=== PATIENT | female | born 1980 | race Caucasian/White ===

== ENCOUNTER 2016-08-04 12:08 | Emergency (ER) | payer OTHER ==
--- NOTE | ~2016-08-04 | CT2 ---
[facility] A Service of [facility] RADIOLOGY TEXT RESULTS PATIENT: STARLA SHARP LOCATION: SED : 82 UNIT #: [id number] AGE: [address]: Eric Aguilar MD SEX: F ORDER DR: [id number] [place] [id number] E MR#: [id number] Acc #: [id number] NAME: STARLA SHARP : 1980 SEX: F STUDY DATE/TIME: 08/04/2016 14:01 UNIT: SED ROOM: STUDY DESCRIPTION: CT Abd and Pelv W Cont Attending Physician: Eric Aguilar M.D. Ordering Physician: Eric Aguilar M.D. Primary Care Physician: Maria Luisa Garcia Aprn MEDICAL IMAGING REPORT This report is preliminary unless electronic signature is present. EXAM CT of the abdomen and pelvis with IV contrast media. HISTORY Left flank pain, unable to urinate, hematuria for 3 days. TECHNIQUE Transaxial imaging of the abdomen and pelvis was performed with IV contrast media. This CT exam was performed with one or more of the following radiation dose reduction techniques: automatic exposure control, adjustment of mA and/or kV according to patient size, and iterative reconstruction. FINDINGS Lung bases are clear. Scans through the liver show no focal abnormalities. The gallbladder is absent. Spleen is of normal size. Adrenal glands and pancreas are normal. There is mild bilateral hydronephrosis and hydroureter. There is enhancement along the course of the ureter on both the right and left. The bladder wall is thickened and very irregular. There appears to be some edema around the distal ureters. Uterus is unremarkable. There are cysts in both adnexa. No free fluid collections are identified. Kidneys themselves show no perinephric edema. No stones are present. No dilated or thickened loops of bowel are present. CONCLUSION 1. Thickened bladder wall that appears irregular with enhancement of the ureters and some periureteral edema distally near the ureterovesical junction suggesting severe cystitis and likely ureteritis. There is mild hydronephrosis present. 2. Status post cholecystectomy. [facility] A Service of [facility] RADIOLOGY TEXT RESULTS PATIENT: STARLA SHARP LOCATION: SED : [birth year] UNIT #: [id number] AGE: [address]: Eric Aguilar MD SEX: F ORDER DR: Dictated by... Jose Manuel Napoles M.D. THIS IS AN ELECTRONICALLY VERIFIED REPORT Jose Manuel Napoles M.D. at 08/07/2016 2:20 PM ETIENNE/kameron TD: 08/04/2016 17:10 JOB #: [id number] MEDICAL IMAGING REPORT Page 1 of 1
[2016-08-04 11:51] LABS: URINE SOURCE CLEAN CATCH
[2016-08-04 11:59] LABS: URINE APPEARANCE SL CLOUDY; URINE BILIRUBIN NEG (NEG); URINE BLOOD 3+ (NEG); URINE COLOR YELLOW; URINE GLUCOSE 300 MG/DL (NORM); URINE KETONE 1+ (NEG); URINE LEUKOCYTE ESTERASE 1+ (NEG); URINE NITRATE POS (NEG); URINE PROTEIN 2+ (NEG); URINE UROBILINOGEN 0.2 MG/DL (NORM)
[2016-08-04 12:00] LABS: MICRO INDICATED? YES
[2016-08-04 12:05] LABS: CULTURE INDICATED? YES; URINE BACTERIA 1+ (NEG); URINE RBC 25-50 /[HPF] (0-2); URINE WBC INNUM /[HPF] (0-5)
[~2016-08-04 12:08] MED LIST: ABILIFY PO; AMOXICILLIN PO; ANTIVERT PO; ASPIRIN PO; ASPIRIN81 M2; BACTRIM DS TABL1 TA1 PO; DIAZEPAM PO; FISH OIL 1,0001 CAP PO; FISH OIL 1,001000 M1 PO; FLEXERIL10 MG PO; GLUCOTROL PO; GLUCOTROL10 MG PO; HUMALOG100 U/ML SUBQ; HUMALOG100 UNIT/1; HUMULIN N100 UNIT/2 SUBQ; IBUPROFEN800 MG PO; JANUVIA PO; KEFLEX500 MG PO; LANTUS100 UNITS/ SUBQ; LEVEMIR SUBQ; LEVEMIR100 U/ML SQ; LEVEMIR100 UNITS/ SUBQ; LIPITOR; LIPITOR40 MG PO; LOPID600 MG PO; LORTAB 10/500 T1 TAB PO; LORTAB 7.5-5001 TAB; METFORMIN PO; NEURONTIN PO; NEURONTIN100 MG PO; NIACIN PO; PHENERGAN PR; PRAVACHOL PO; PRAVASTATIN SOD40 MG PO; PRILOSEC20 MG PO; REGLAN10 MG PO; VIBRAMYCIN100 M1 PO; VOLTAREN75 MG PO; ZANTAC PO; ZOCOR PO; ZOFRAN ODT4 MG/UDTAB PO
[2016-08-04 12:50] LABS: BASOPHIL# 0.2 X10e3 (0-0.3); BASOPHIL% 1.3 % (0-2.5); EOSINOPHIL# 0.1 X10e3 (0-0.7); EOSINOPHIL% 0.8 % (0.0-7.0); HEMATOCRIT 38.6 % (35.0-45.0); HEMOGLOBIN 13.3 gm/dL (12.0-16.0); LYMPHOCYTE# 1.7 X10e3 (1.0-3.5); LYMPHOCYTE% 11.5 % (17.0-45.0); MEAN CORPUSCULAR HGB CONC 34.5 g/dL (30-36); MEAN PLATELET VOLUME 9.3 FL (6.5-11.5); NEUTROPHIL# 11.5 X10e3 (1.5-7.1); NEUTROPHIL% 79.4 % (40-75); PLATELET COUNT 273 X10e3 (140-420); RED BLOOD COUNT 4.28 X10e (3.90-5.30); RED CELL DISTRIBUTION WIDTH 12.3 % (11.0-15.5); WHITE BLOOD COUNT 14.5 X10e3 (4.0-10.5)
[2016-08-04 12:58] LABS: DIFF IND NO
[2016-08-04 13:11] LABS: ALBUMIN SERUM 4.1 g/dL (3.5-5.0); ALKALINE PHOSPHATASE 75 U/L (32-92); ALT (SGPT) 15 U/L (10-40); AST (SGOT) 11 U/L (10-42); BILIRUBIN,TOTAL 0.2 mg/dL (0.2-2.0); BLOOD UREA NITROGEN 14 mg/dL (9-23); CALCIUM SERUM 8.6 mg/dL (8.4-10.2); CARBON DIOXIDE 26 mmol/L (22-31); CHLORIDE 100 mmol/L (100-111); CREATININE SERUM 0.5 mg/dL (0.6-1.4); GLOM FILT RATE Estimated 125.4 mL/min (>60); GLUCOSE FASTING 249 mg/dL (70-110); LIPASE 27 U/L (22-51); POTASSIUM 3.5 mmol/L (3.5-5.1); PROTEIN TOTAL SERUM 7.3 g/dL (6.0-8.3); SODIUM 133 mmol/L (135-145)
[2016-08-04 13:12] LABS: BILIRUBIN, DIRECT <0.1 mg/dL (0.0-0.2); BILIRUBIN,INDIRECT 0.1 mg/dL (0.0-0.9)
[2016-08-04] MEDS ORDERED: LEVAQUIN PO (16:02)
[2016-08-04] MEDS ORDERED: ZOFRAN ODT4 MG PO (16:03)
[2016-08-04] MEDS ORDERED: HYDROCODON-ACE1 EAC7 PO (16:03)
[2016-08-04] MEDS ORDERED: DIFLUCAN100 MG PO (16:04)
[2016-08-04] MEDS ORDERED: PYRIDIUM100 MG PO (16:05)
== END 2016-08-04 16:20 | disposition home or self-care (01) ==
LOC: SED 12:08
PROVIDERS: Emergency Medicine
DX: N30.00 Acute cystitis without hematuria (principal); N28.89 Other specified disorders of kidney and ureter; E10.8 Type 1 diabetes mellitus with unspecified complications; E78.5 Hyperlipidemia, unspecified; Z90.49 Acquired absence of other specified parts of digestive tract; Z98.890 Other specified postprocedural states; Z79.4 Long term (current) use of insulin; Z79.899 Other long term (current) drug therapy
CPT/HCPCS: 36415; 74177; 80048; 80076; 81003; 83690; 84703; 85025; 87086; 87088; 87186; 96361; 96365; 96375; 96376; 99284; J1170; J1956; J2405; Q9967